=== PATIENT | female | born 1975 | race African-American/Black ===

== ENCOUNTER 2024-08-10 10:00 | Inpatient (IN) | payer SELFPAY ==
[~2024-08-10] VITALS: Ht 167.6 cm; Wt 110.2 kg
[2024-08-10 10:18] VITALS: PULSE 100; RESP 18; O2SAT 96
--- NOTE | 2024-08-10 10:19 | ED.PDOC ---
History of Present Illness HPI Comments 48-year-old female with PMHx HTN presents with a chief complaint of HTN. Patient mentions that she used to see Dr. Mccoy and had been prescribed medication, but since losing her insurance, she has not seen a doctor. Patient mentions that she used to take Hydrochlorothiazide, but has not taken it in about 5 years. Patient mentions that she is currently asymptomatic at this time. BP in triage was 213 systolic, with yesterdays being 244 systolic per the patient. 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 Hx Family History Family History: Reviewed,noncontributory to illness Social History Smoker: Non-Smoker Alcohol: Denies ETOH Use Drugs: Denies Drug Use Constitutional: denies: chills, diaphoresis, fatigue, fever, malaise, sweats, weakness, others Respiratory: denies: cough, hemoptysis, orthopnea, SOB at rest, shortness of breath, SOB with excertion, stridor, wheezing, others Cardiovascular: reports: others (HYPERTENSION); denies: chest pain, dizzy sp ells, diaphoresis, Dyspnea on exertion, edema, irregular heart beat, left arm pain, lightheadedness, palpitations, PND, syncope Gastrointestinal: denies: abdomen distended, abdominal pain, blood streaked bowels, constipated, diarrhea, dysphagia, difficulty swallowing, hematemesis, melena, nausea, poor appetite, poor fluid intake, rectal bleeding, rectal pain, vomiting, others Genitourinary: denies: abnormal vagina bleeding, burning, dyspareunia, dysuria, flank pain, frequency, hematuria, incontinence, pain, , vagina discharge, urgency, others Neurological: denies: dizziness, fainting, headache, left sided numbness, left sided weakness, numbness, paresthesia, pre-existing deficit, right sided numbness, right sided weakness, seizure, speech problems, tingling, tremors, weakness, others Musculoskeletal: denies: back pain, gout, joint pain, joint swelling, muscle pain, muscle stiffness, neck pain, others Integumetry: denies: bruises, change in color, change in hair/nails, dryness, laceration, lesions, lumps, rash, wounds, others Allergic/Immunocompromised: denies: Difficulty Healing, Frequent Infections, Hives, Itching, others Hematologic/Lymphatic: denies: anemia, blood clots, easy bleeding, easy bruising, swollen glands, others Endocrine: denies: excessive hunger, excessive sweating, excessive thirst, excessive urination, flushing, intolerance to cold, intolerance to heat, unexplained weight gain, unexplained weight loss, others Psychiatric: denies: anxiety, bipolar disorder, depression, hopeless, panic disorder, schizophrenia, sleepless, suicidal, others All Other Systems: Reviewed and Negative Physical Exam General Appearance: No Apparent Distress, Normal HEENT: Normal ENT Inspection, Pharynx Normal, TMs Normal Neck: Full Range of Motion, Non-Tender, Normal, Normal Inspection Respiratory: Chest Non-Tender, Lungs Clear, No Accessory Muscle Use, No Respiratory Distress, Normal Breath Sounds Cardiovascular: No Edema, No JVD, No Murmur, No Gallop, Normal Peripheral Pulses, Regular Rate/Rhythm Breast Exam: Deferred Gastrointestinal: No Organomegaly, Non Tender, No Pulsatile Mass, Normal Bowel Sounds, Soft Genitalia: Deferred Pelvic: Deferred Rectal: Deferred Extremities: No calf tenderness, Normal capillary refill, Normal inspection, Normal range of motion, Non-tender, No pedal edema Musculoskeletal : Apperance: Normal Neurologic: Alert, sound recordist II-XII nml as Tested, No Motor Deficits, Normal Affect, Normal Mood, No Sensory Deficits Cerebellar Function: Normal Reflexes: Normal Skin: Dry, Normal Color, Warm Lymphatic: No Adenopathy Was a procedure done? Was a procedure done?: No EKG EKG : Pulse Rate (adult): 96 [place]: Normal Cardiac Rhythm: NSR Block: None Hypertrophy: None ST: Normal Differential Dx Considerations may include: hypertensive urgency, hypertensive emergency, renal failure, pheochromocytomas, intracranial bleed X-Ray, Labs, Meds, VS Vital Signs Date Time Temp Pulse Resp B/P (MAP) Pulse Ox O2 Delivery O2 Flow Rate FiO2 08/10/24 11:29 89 16 203/139 (160) 96 08/10/24 11:06 96 08/10/24 10:38 96 08/10/24 10:23 213/159 08/10/24 10:18 100 18 96 Room Air* 0 21 08/10/24 10:18 98.3 100 16 213/159 (177) 96 98.3 08/10/24 10:12 99.2 100 18 215/153 (173) 95 99.2 Lab Test 08/10/24 10:36 Range/Units White Blood Count 9.2 4.4-10.8 10^3/uL Red Blood Count 5.65 H 4.0-5.20 10^6/uL Hemoglobin 14.3 12.2-16.2 g/dL Hematocrit 44.0 36.0-46.0 % Mean Corpuscular Volume 77.9 L 80.0-100.0 fL Mean Corpuscular Hemoglobin 25.4 L 28.0-32.0 pg Mean Corpuscular Hemoglobin Concent 32.6 32.0-36.0 g/dL Red Cell Distribution Width 16.5 H 11.8-14.3 % Platelet Count 286 140-450 10^3/uL Mean Platelet Volume 8.1 6.9-10.8 fL Neutrophils (%) (Auto) 63.3 37.0-80.0 % Lymphocytes (%) (Auto) 30.5 10.0-50.0 % Monocytes (%) (Auto) 4.9 0.0-12.0 % Eosinophils (%) (Auto) 0.9 0.0-7.0 % Basophils (%) (Auto) 0.4 0.0-2.0 % Neutrophils # (Auto) 5.8 1.6-8.6 10 ^3/uL Lymphocytes # (Auto) 2.8 0.4-5.4 10 ^3/uL Monocytes # (Auto) 0.5 0-1.3 10 ^3/uL Eosinophils # (Auto) 0.1 0-0.8 10 ^3/uL Basophils # (Auto) 0 0-0.2 10 ^3/uL Nucleated Red Blood Cells 0.1 % Sodium Level 137 136-145 mmol/L Potassium Level 4.1 3.5-5.1 mmol/L Chloride Level 103 98-107 mmol/L Carbon Dioxide Level 28 20-31 mmol/L Anion Gap 6 5-15 Blood Urea Nitrogen 11 9-23 mg/dL Creatinine 0.86 0.550-1.02 mg/dL Glomerular Filtration Rate Calc 82 >90 mL/min BUN/Creatinine Ratio 12.8 10.0-20.0 Serum Glucose 96 74-106 mg/dL Calcium Level 9.6 8.7-10.4 mg/dL Troponin I High Sensitivity 17 </=34 ng/L Current Medications Medications (Trade) Dose Ordered Sig/Benjamin Route Start Time Stop Time Status Last Admin Clonidine HCl (Catapres Tablet) 0.1 mg ONCE ONCE PO 08/10/24 10:15 08/10/24 10:16 DC 08/10/24 10:23 Time of 1ST Reevaluation: 10:38 Reevaluation 1ST: Unchanged Time of 2ND Reevaluation: 11:30 Reevaluation 2ND: Unchanged Patient Education/Counseling: Diagnosis, Treatment, Prognosis, Need For Follow Up Family Education/Counseling: No Family Present Additional Information Previous visits: NONE The following tests were ordered, and results were reviewed by me: CBC, CMP, TROPONIN, EKG, CXR, CLONIDINE I reviewed and agreed with the following test results read by other providers: RADIOLOGIST - CXR I discussed treatment and results with medical personnel and: PATIENT Comprehensive systems review obtained and negative except for what is stated in the HPI. pt remains extremely hypertensive, with a headache. she has no neuologic deficits, but i will add a head ct to rule out subarachnoid bleed, and start her on iv labetalol and pt will be admitted for hypertensive urgency Departure 1 Departure Time of Disposition: 11:32 Impression: Primary Impression: Hypertensive urgency Disposition: ADMITTED INPATIENT Admit to: [facility] Condition: Serious Discharged With: Self Critical Care Note Critical Care Time?: Yes (55 min-critical care time only) Critical care comment: Due to concerns for patients condition deteriorating, the care required my highest level of attention and readiness to intervene. I assessed the patient, reviewed the medical records, ordered the appropriate tests and treatments, then reassessed for results and responsiveness. I communicated with medical personnel and consultants and formulated a plan of care. Total critical care time excludes any procedures Stability Stability form required: No Heart Score Heart Score: Heart Score Response (Comments) Value History N/A 0 EKG N/A 0 Age N/A 0 Risk Factors N/A 0 Troponin N/A 0 Total 0 I personally scribed for MEREDITH CHIN MD ([email or web address]) on 08/10/24 at 10:19. Electronically submitted by Enmanuel Tyler ([email or web address]). I personally scribed for MEREDITH CHIN MD ([facility]) on 08/10/24 at 11:06. Electronically submitted by Enmanuel Tyler ([email or web address]). MEREDITH CHIN MD Aug 10, 2024 10:19
[2024-08-10] MEDS: cloNIDine HCL 0.1 MG TAB PO ONE (10:23)
--- NOTE | 2024-08-10 10:39 | ECG ---
[facility] Test Date: 2024-08-10 Test Time: 10:38:16 Pat Name: LIDA HERNANDEZ Department: ED Room: 0293T Gender: F Style Advisor: FAYE : 1975 Requested By: MEREDITH CHIN Order Number: [id number] Reading MD: Jack Ovalles Measurements Intervals [place] Rate: 96 P: 33 MD: 129 QRS: 70 QRSD: 82 T: -4 QT: 380 QTc: 481 Interpretive Statements Sinus rhythm Borderline T abnormalities, anterior leads Baseline wander in lead(s) I,III,aVL,V1 Electronically Signed On 08-12-2024 17:08:07 PDT by Jack Ovalles Please click the below link to view image of tracing.
[2024-08-10 11:01] LABS: Basophils # (auto) 0 10 ^3/uL (0-0.2); Basophils % (auto) 0.4 % (0.0-2.0); Eosinophils # (auto) 0.1 10 ^3/uL (0-0.8); Eosinophils % (auto) 0.9 % (0.0-7.0); Hemoglobin 14.3 g/dL (12.2-16.2); Lymphocytes # (auto) 2.8 10 ^3/uL (0.4-5.4); Lymphocytes % (auto) 30.5 % (10.0-50.0); Mean Corpuscular Hemoglobin 25.4 pg (28.0-32.0); Mean Corpuscular Hgb Conc. 32.6 g/dL (32.0-36.0); Mean Corpuscular Volume 77.9 fL (80.0-100.0); Monocytes # (auto) 0.5 10 ^3/uL (0-1.3); Monocytes % (auto) 4.9 % (0.0-12.0); Neutrophils # (auto) 5.8 10 ^3/uL (1.6-8.6); Neutrophils % (auto) 63.3 % (37.0-80.0); Nucleated Red Blood Cells % 0.1 %; Platelet Count (auto) 286 10^3/uL (140-450); Red Blood Cells 5.65 10^6/uL (4.0-5.20); Red Cell Distribution Width 16.5 % (11.8-14.3); White Blood Cell 9.2 10^3/uL (4.4-10.8)
[2024-08-10 11:09] LABS: Chloride 103 mmol/L (98-107); Potassium 4.1 mmol/L (3.5-5.1); Sodium 137 mmol/L (136-145)
[2024-08-10 11:10] LABS: Anion Gap 6 (5-15); Calcium 9.6 mg/dL (8.7-10.4); Carbon Dioxide 28 mmol/L (20-31)
[2024-08-10 11:15] LABS: BUN/Creatinine Ratio 12.8 (10.0-20.0); Blood Urea Nitrogen 11 mg/dL (9-23); Glucose 96 mg/dL (74-106)
--- NOTE | 2024-08-10 11:15 | DVH ---
EXAM: XY CHEST PORTABLE Indication: htn Technique: Single frontal view of the chest was obtained Comparison: None FINDINGS: Lines and Tubes: None Lungs: No focal consolidation. Pleura: No effusion. No pneumothorax. Cardiomediastinal contours: Unremarkable Bones: No acute osseous abnormality. IMPRESSION: No acute cardiopulmonary disease.
[2024-08-10] MEDS: ACETAMINOPHEN 325 MG TAB PO ONE (11:34)
--- NOTE | 2024-08-10 12:12 | DVH ---
EXAM: CT HEAD WITHOUT CONTRAST INDICATION: headache, htn TECHNIQUE: CT of the head without intravenous contrast. Coronal and sagittal reformatted images are s ubmitted. Radiation Dose : 1. Head: CT Dose: CTDI volume is 66.99 mGy. Dose-length product is 1185.94 mGy*cm The dose indicators for CT are the volume Computed Tomography (CT) Dose Index (CTDIvol) and the Dose Length Product (DLP), and are measured in units of mGy and mGy-cm, respectively. These indicators are not patient dose, but values generated from the CT scanner acquisition factors. The report includes radiation exposure data for exposures received during this examination. All CT scans at this medical facility are performed using dose modulation techniques as appropriate to a performed exam including the following: Automated exposure control was utilized; adjustment of the MA and/or KV according to patient size; and use of iterative reconstruction technique. COMPARISON: None FINDINGS: There is no evidence of acute intracranial hemorrhage, extra-axial collection, mass effect, midline s hift, herniation or hydrocephalus. The ventricles, sulci and cisterns are age appropriate. The balderrama-white differentiation is intact. The visualized paranasal sinuses and mastoid air cells are clear. No depressed calvarial fracture. The surrounding soft tissues are unremarkable. IMPRESSION: 1. No evidence of acute intracranial abnormality.
[2024-08-10] MEDS: LABETALOL HCL 20 MG/4 ML VL IV ONE (12:17)
[2024-08-10] MEDS: LABETALOL INJECTION 250 MG in SODIUM CHL 0.9% 200 ML IV ONE ×2 (13:30→22:40)
[2024-08-10] MEDS ORDERED: HYDROcodone-ACET 5/325MG TAB PO PRN (14:15)
[2024-08-10] MEDS: hydroCHLOROthiazide 25 MG TAB PO SCH (14:15)
--- NOTE | 2024-08-10 14:19 | DVHHP2 ---
Admitting Diagnosis: Hypertension History of Present Illness 48-year-old female with PMHx HTN presents with a chief complaint of HTN. Patient mentions that she used to see Dr. Mccoy and had been prescribed medication, but since losing her insurance, she has not seen a doctor. Patient mentions that she used to take Hydrochlorothiazide, but has not taken it in about 5 years. Patient mentions that she is currently asymptomatic at this time. BP in triage was 213 systolic, with yesterdays being 244 systolic per the patient. 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 CHAPERONE Hx Family History Family History: Reviewed,noncontributory to illness Social History Smoker: Non-Smoker Alcohol: Denies ETOH Use Drugs: Denies Drug Use Allergies: Coded Allergies: NO KNOWN ALLERGIES (Unverified , 08/10/24) Current Medications Current Medications Medications (Trade) Dose Ordered Sig/Benjamin Route PRN Reason Start Time Stop Time Status Last Admin Sodium Chloride (Saline Lock Ns) 10 ml Q8HR IV 08/10/24 22:00 Acetaminophen (Tylenol Tablet) 650 mg Q6HP PRN PO PAIN SCALE 1-3 OR TEMP>100.4 08/10/24 14:15 Acetaminophen/ Hydrocodone Bitart ([place] 5/325MG Tab) 1 tab Q4HP PRN PO MODERATE PAIN (4-6 PAIN SCALE) 08/10/24 14:15 Enoxaparin Sodium (Lovenox) 40 mg DAILY SC 08/11/24 10:00 Hydrochlorothiazide (hydroCHLOROthiazide TABLET) 25 mg DAILY PO 08/10/24 14:15 Vital Signs Vital Signs Date Time Temp Pulse Resp B/P (MAP) Pulse Ox O2 Delivery O2 Flow Rate FiO2 08/10/24 13:17 78 172/105 08/10/24 11:29 16 96 08/10/24 10:18 Room Air* 0 21 08/10/24 10:18 98.3 98.3 Physical Exam Generally-48 years old, morbidly obese, lying bed. No apparent distress HEENT-atraumatic, normocephalic Heart-regular rate and rhythm Lungs clear to auscultate bilaterally Abdomen soft nontender nondistended Musculoskeletal-no edema cyanosis Neuro-AO x3, no focal deficits Results Labs Test 08/10/24 10:36 Range/Units White Blood Count 9.2 4.4-10.8 10^3/uL Red Blood Count 5.65 H 4.0-5.20 10^6/uL Hemoglobin 14.3 12.2-16.2 g/dL Hematocrit 44.0 36.0-46.0 % Mean Corpuscular Volume 77.9 L 80.0-100.0 fL Mean Corpuscular Hemoglobin 25.4 L 28.0-32.0 pg Mean Corpuscular Hemoglobin Concent 32.6 32.0-36.0 g/dL Red Cell Distribution Width 16.5 H 11.8-14.3 % Platelet Count 286 140-450 10^3/uL Mean Platelet Volume 8.1 6.9-10.8 fL Neutrophils (%) (Auto) 63.3 37.0-80.0 % Lymphocytes (%) (Auto) 30.5 10.0-50.0 % Monocytes (%) (Auto) 4.9 0.0-12.0 % Eosinophils (%) (Auto) 0.9 0.0-7.0 % Basophils (%) (Auto) 0.4 0.0-2.0 % Neutrophils # (Auto) 5.8 1.6-8.6 10 ^3/uL Lymphocytes # (Auto) 2.8 0.4-5.4 10 ^3/uL Monocytes # (Auto) 0.5 0-1.3 10 ^3/uL Eosinophils # (Auto) 0.1 0-0.8 10 ^3/uL Basophils # (Auto) 0 0-0.2 10 ^3/uL Nucleated Red Blood Cells 0.1 % Sodium Level 137 136-145 mmol/L Potassium Level 4.1 3.5-5.1 mmol/L Chloride Level 103 98-107 mmol/L Carbon Dioxide Level 28 20-31 mmol/L Anion Gap 6 5-15 Blood Urea Nitrogen 11 9-23 mg/dL Creatinine 0.86 0.550-1.02 mg/dL Glomerular Filtration Rate Calc 82 >90 mL/min BUN/Creatinine Ratio 12.8 10.0-20.0 Serum Glucose 96 74-106 mg/dL Calcium Level 9.6 8.7-10.4 mg/dL Troponin I High Sensitivity 17 </=34 ng/L Primary Diagnosis Hypertensive encephalopathy Plan Patient denies using hydralazine hydrochlorothiazide after changing insurance for prophylaxis For past few days patient has been having had an check her blood pressure was over 200s Patient was started on labetalol drip in ED. Resume hydrochlorothiazide 25 mg daily Hydralazine p.r.n. Troponin negative Check echo of the heart for stricture heart disease Cardiac diet Full code Lovenox for DVT prophylaxis No GI prophylaxis needed Plan discussed with: Patient Problems List: (1) Hypertensive urgency Status: Acute (2) Hypertensive encephalopathy Date of Service: Aug 10, 2024 Billing Provider: RUBI RAMOS MD Common Visit Codes: 35401-[id number] CARE 30-74 MIN RUBI RAMOS MD Aug 10, 2024 14:19
[2024-08-10 14:40] VITALS: PULSE 76; RESP 11; O2SAT 93
[2024-08-10 18:24] LABS: Urine Bacteria FEW /hpf (None Seen); Urine Blood Negative /uL (Negative); Urine Clarity Clear (Clear); Urine Color Light-Yellow (Yellow); Urine Mucus FEW (None Seen); Urine Protein, UAD Negative (Negative); Urine Specific Gravity 1.009 (1.001-1.035); Urine Squamous Epithelial Cell FEW /hpf (<5); Urine Urobilinogen Normal (Negative); Urine WBC 2 /HPF (0-5); Urine pH 5.5 (5.0-9.0)
[2024-08-10] MEDS: SODIUM CHLOR 0.9% PF (SALINE LOCK) 10ML VIAL/SYR IV SCH (22:01)
[2024-08-10] MEDS ORDERED: LABETALOL HCL 20 MG/4 ML VL IV PRN (23:30)
[2024-08-11] MEDS: ACETAMINOPHEN 325 MG TAB PO PRN (03:05)
[2024-08-11 03:14] VITALS: O2SAT 96
[2024-08-11 05:21] LABS: Basophils # (auto) 0 10 ^3/uL (0-0.2); Eosinophils # (auto) 0.1 10 ^3/uL (0-0.8); Hemoglobin 12.8 g/dL (12.2-16.2); Monocytes # (auto) 0.5 10 ^3/uL (0-1.3); Nucleated Red Blood Cells % 0.1 %
[2024-08-11 05:25] LABS: Basophils % (auto) 0.3 % (0.0-2.0); Hematocrit 39.4 % (36.0-46.0); Lymphocytes # (auto) 2.4 10 ^3/uL (0.4-5.4); Lymphocytes % (auto) 28.9 % (10.0-50.0); Mean Corpuscular Hemoglobin 25.3 pg (28.0-32.0); Mean Corpuscular Hgb Conc. 32.6 g/dL (32.0-36.0); Mean Corpuscular Volume 77.6 fL (80.0-100.0); Monocytes % (auto) 5.9 % (0.0-12.0); Neutrophils # (auto) 5.3 10 ^3/uL (1.6-8.6); Neutrophils % (auto) 63.9 % (37.0-80.0); Platelet Count (auto) 260 10^3/uL (140-450); Red Blood Cells 5.08 10^6/uL (4.0-5.20); Red Cell Distribution Width 16.8 % (11.8-14.3); White Blood Cell 8.3 10^3/uL (4.4-10.8)
[2024-08-11 05:54] LABS: Alanine Aminotransferase 19 U/L (7-40); Alkaline Phosphatase 64 U/L (46-116); Anion Gap 8 (5-15); BUN/Creatinine Ratio 12.8 (10.0-20.0); Blood Urea Nitrogen 11 mg/dL (9-23); Carbon Dioxide 26 mmol/L (20-31); Chloride 104 mmol/L (98-107); Glucose 104 mg/dL (74-106); Potassium 3.7 mmol/L (3.5-5.1); Sodium 138 mmol/L (136-145); Total Protein 7.1 g/dL (5.7-8.2)
[2024-08-11 05:55] LABS: Aspartate Aminotransferase 20 U/L (13-40)
[2024-08-11 05:56] LABS: Bilirubin, Total 0.6 mg/dL (0.2-1.0)
[2024-08-11 07:30] VITALS: PULSE 76; RESP 14; O2SAT 96
[2024-08-11] MEDS: ENOXAPARIN SOD 40 MG/0.4 ML SYRINGE SC SCH (10:09)
[2024-08-11] MEDS: LOSARTAN POTASSIUM 25 MG TAB PO ONE (11:24)
--- NOTE | 2024-08-11 11:43 | DVHSR ---
APPROVED REPORT EXAM: Two-dimensional and M-mode echocardiogram with Doppler and color Doppler. Blood Pressure: 172/105 mmHg INDICATION Hypertension RISK FACTORS Height: 5'6", Weight: 244 DIMENSIONS LVDd5.4 (3.8-5.7cm)LA (2D)3.8 (1.9-4.0cm)Aortic Root3.0 (2.0-3.7cm) LVDs3.7 (2.5-4.0cm)LA (MM) (1.9-4.0cm)Aortic Cusp Exc1.8 (1.5-2.0cm) EF (%) 58.0 (55-70%)Rt. Atrium4.2 (1.9-4.0cm)Asc. Aorta3.2 cm IVSd1.8 (0.7-1.1cm)RV (D)3.2 (1.8-2.4cm) PWd1.8 (0.7-1.1cm) Mitral Valve MitralMitral Stenosis E wave0.57m/sMV Mean GR.mmHg A wave0.83m/sMV Peak GR.mmHg E/A ratio0.72D MVAcm2 DECEL [id number] 1/2 Timems Aortic Valve Aortic ValveAortic Stenosis V11.28m/Emelia Mean GR.6mmHg V21.65m/Emelia Peak GR.11mmHg LVOT Diameter2.2 (1.8-2.4cm)Doppler AVA2.95cm2 Pulmonic Valve V21.23m/s Other Information Quality : Technically LimitedRhythm : Technically limited study due to body habitus. Conclusion lvef 45-50% moderate to sever LVH hypokinetic apex normal rv function left atrium enlarged mild
[2024-08-11] MEDS ORDERED: LOSA-534 PO (14:54)
[2024-08-11] MEDS ORDERED: HYDR25TA5 PO (14:54)
--- NOTE | 2024-08-11 15:03 | DVHDSRES ---
Discharge Summary Date of Admission Resident Creating Document: WILMAN FAN RESIDENT Aug 10, 2024 at 14:11 Date of Discharge: Aug 11, 2024 Admitting Diagnosis Uncontrolled hypertension Labs/Diagnostic Data: Laboratory Results Test 08/11/24 04:54 08/10/24 17:40 08/10/24 10:36 White Blood Count 8.3 10^3/uL (4.4-10.8) Red Blood Count 5.08 10^6/uL (4.0-5.20) Hemoglobin 12.8 g/dL (12.2-16.2) Hematocrit 39.4 % (36.0-46.0) Mean Corpuscular Volume 77.6 fL (80.0-100.0) Mean Corpuscular Hemoglobin 25.3 pg (28.0-32.0) Mean Corpuscular Hemoglobin Concent 32.6 g/dL (32.0-36.0) Red Cell Distribution Width 16.8 % (11.8-14.3) Platelet Count 260 10^3/uL (140-450) Mean Platelet Volume 8.5 fL (6.9-10.8) Neutrophils (%) (Auto) 63.9 % (37.0-80.0) Lymphocytes (%) (Auto) 28.9 % (10.0-50.0) Monocytes (%) (Auto) 5.9 % (0.0-12.0) Eosinophils (%) (Auto) 1.0 % (0.0-7.0) Basophils (%) (Auto) 0.3 % (0.0-2.0) Neutrophils # (Auto) 5.3 10 ^3/uL (1.6-8.6) Lymphocytes # (Auto) 2.4 10 ^3/uL (0.4-5.4) Monocytes # (Auto) 0.5 10 ^3/uL (0-1.3) Eosinophils # (Auto) 0.1 10 ^3/uL (0-0.8) Basophils # (Auto) 0 10 ^3/uL (0-0.2) Nucleated Red Blood Cells 0.1 % Sodium Level 138 mmol/L (136-145) Potassium Level 3.7 mmol/L (3.5-5.1) Chloride Level 104 mmol/L (98-107) Carbon Dioxide Level 26 mmol/L (20-31) Anion Gap 8 (5-15) Blood Urea Nitrogen 11 mg/dL (9-23) Creatinine 0.86 mg/dL (0.550-1.02) Glomerular Filtration Rate Calc 82 mL/min (>90) BUN/Creatinine Ratio 12.8 (10.0-20.0) Serum Glucose 104 mg/dL (74-106) Calcium Level 9.0 mg/dL (8.7-10.4) Total Bilirubin 0.6 mg/dL (0.2-1.0) Aspartate Amino Transferase (AST) 20 U/L (13-40) Alanine Aminotransferase (ALT) 19 U/L (7-40) Alkaline Phosphatase 64 U/L (46-116) Total Protein 7.1 g/dL (5.7-8.2) Albumin 4.0 g/dL (3.2-4.8) Urine Color Light-yellow (Yellow) Urine Clarity Clear (Clear) Urine pH 5.5 (5.0-9.0) Urine Specific [place] 1.009 (1.001-1.035) Urine Protein Negative (Negative) Urine Ketones Negative (Negative) Urine Blood Negative /uL (Negative) Urine Nitrite Negative (Negative) Urine Bilirubin Negative (Negative) Urine Urobilinogen Normal mg/dL (Negative) Urine Leukocyte Esterase Negative /uL (Negative) Urine RBC <1 /hpf (0 - 4) Urine Microscopic WBC 2 /HPF (0-5) Urine Squamous Epithelial Cells Few /hpf (<5) Urine Bacteria Few /hpf (None Seen) Urine Mucus Few (None Seen) Urine Glucose Normal mg/dL (Normal) Troponin I High Sensitivity 17 ng/L (</=34) Other Laboratory Tests 08/11/24 04:54 Brief Hx & Hospital Course: Patient is 48-year-old female with past medical history of hypertension not on any medication came to the hospital for uncontrolled hypertension, as per patient she does not have any insurance as well as she is not taking any medication for the same. With further evaluation patient found to have systolic blood pressure around 215, was initiated on labetalol drip, blood pressure was well controlled and labetalol drip was discontinued. Started oral medication hydrochlorothiazide and losartan p.o.. Given patient's blood pressure is under control, no air given damage given head CT is negative, chest x-ray normal, non elevated troponin, echocardiogram showed left ventricular hypertrophy with ejection fraction of 45% to 50%, patient will need rigorous follow with primary care physician for hypertension management and left ventricular hypertrophy management. Patient advised to continue measuring blood pressure record, dash diet, 2 g sodium diet, encourage weight loss, encouraged on regular exercise at least 30-40 minutes per day. Patient agreed with discharge plan, patient also agreed that she will get her insurance and follow with in few weeks. Patient has been discharged home Physical examination on the day of discharge: General: Morbidly obese, lying bed. No apparent distress HEENT: Atraumatic, normocephalic Heart: Regular rate and rhythm Lungs: Clear to auscultate bilaterally Abdomen: Soft nontender nondistended Musculoskeletal: No edema Neuro: AAO x3, no focal deficits Discussed with Dr. Mcknight Condition at Discharge: Stable Final Diagnosis/Problems List Hypertensive heart disease with acute HF MR EF Hypertensive urgency Left ventricular hypertrophy Morbid obesity with BMI 39.5 Discharge Disposition: Home Discharge Instruct/Medications Diet: Cardiac 2g Na,low cholest Activity: No Restrictions, As Tolerated Follow Up/Referral: -follow up in [place] clinic in one week Medications: Sent prescription of hydrochlorothiazide and losartan Discharge Statement: "Patient was advised to return to the ER or call 911 if any headaches, dizziness, shortness of breath, chest pain, abdominal pain, bleeding, fevers, or worsening of medical condition. Patient was counseled about treatment plan, medications, possible side effects, patientverbalized understanding. All questions were answered to the best of my ability. This discharge took greater then 30 minutes in planning, reviewing documentation, counseling the patient, and discussing with other team members." ASSESSMENT ASSESSMENT Assessment Hypertensive urgency Addendum Addendum Addendum I was physically present for the villalobos portions of the service provided to patient by THE RESIDENT. I have reviewed the documentation, discussed the case with resident and agree with the resident's documentation except as noted. Also the patient's clinical case was discussed with the patient's nurse. This medical document was created using an electronic medical record system with computerized dictation system. Although this document has been carefully reviewed, there might still be some phonetic and typographical errors. These areas are purely typographical due to imperfections of the software programs, and do not reflect any compromise in the patient's medical care. Late signature. Date of Service: Aug 11, 2024 Billing Provider: STEPHANI MCKNIGHT MD Common Visit Codes: 65817-LBL/OBS DISCH DAY >30min WILMAN FAN RESIDENT Aug 11, 2024 15:03 STEPHANI MCKNIGHT MD Aug 12, 2024 09:31
[2024-08-11 15:07] VITALS: PULSE 68; RESP 18; O2SAT 99
[2024-08-11 15:28] VITALS: PULSE 67
[2024-08-11 15:33] VITALS: BP 177/105; PULSE 67; RESP 18; TEMP 97.7; O2SAT 98
[2024-08-11] MEDS: hydrALAZINE HCL 20 MG/ML VL IV PRN (15:50)
[2024-08-11 16:45] VITALS: BP 150/104; PULSE 73; RESP 16; TEMP 98.5; O2SAT 97
== END 2024-08-11 17:00 | disposition home or self-care (01) | DRG 291 ==
LOC: ER 10:00 → OVERFLOW 14:11 → TELE-WESTW 08-11 14:39
PROVIDERS: ADMIT Internal Medicine; ATTEND Internal Medicine
DX: I11.0 Hypertensive heart disease with heart failure (principal); I50.21 Acute systolic (congestive) heart failure; I67.4 Hypertensive encephalopathy; I16.0 Hypertensive urgency; E66.01 Morbid (severe) obesity due to excess calories; Z79.899 Other long term (current) drug therapy; Z68.39 Body mass index [BMI] 39.0-39.9, adult
CPT/HCPCS: 36415; 70450; 71045; 80048; 80053; 81001; 84484; 85025; 93005; 93306; 96365; 96375; 99291; G0378